=== PATIENT | male | born 1945 | race Caucasian/White ===

== ENCOUNTER 2021-03-20 10:12 | Inpatient (IN) | payer MEDICARE, MEDICAID, SELFPAY ==
[2021-03-20] VITALS (9 sets, daily range): BP systolic 142–185; BP diastolic 76–86; PULSE 74–105; RESP 18–34; TEMP 36.3–37.1; O2SAT 93–98
--- NOTE | ~2021-03-20 | CT_ITS ---
EXAMINATION: CT brain wo con INDICATION: Headache COMPARISON: None TECHNIQUE: Standard unenhanced head CT. The dose-length product (DLP) was 605.33 mGy-cm. The mA was a djusted according to patient size. Iterative reconstruction technique was employed. FINDINGS: There is acute intraparenchymal hemorrhage involving the left parietal region. There is a m oderate amount of edema in the left parietal lobe. There also appears to be a small amount of left pa rietal subarachnoid hemorrhage. No evidence of mass lesion. No evidence of acute infarction. Areas of encephalomalacia in the bilateral basal ganglia, right occipital lobe, and right cerebellum are cons istent with prior infarction. There is mild periventricular and subcortical hypodensity probably rela ondina to small vessel ischemic disease. There is mild prominence of the sulci and ventricles related to cerebral atrophy. Intracranial calcified cerebral atherosclerosis is noted. There are no extra-axial collections. There is no mass effect or midline shift. The orbits and soft tissues are unremarkable. The visualized sinuses and mastoid air cells are well aerated. IMPRESSION: 1. Acute intraparenchymal hemorrhage involving the left parietal region and small amount of left michelle etal subarachnoid hemorrhage, findings are likely posttraumatic in nature. Were discussed with YADY Galdamez on [address] [place] [id number] at 1026 hours on 03/22/2021. 2. 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 Reviewed, dictated and finalized at location B. IMPRESSION: 1. Acute intraparenchymal hemorrhage involving the left parietal region and sma ll amount of left parietal subarachnoid hemorrhage, findings are likely posttra umatic in nature. Were discussed with YADY Galdamez on [address] [place] [id number] at 1026 hours o n 03/22/2021. 2. 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
--- NOTE | ~2021-03-20 | XR_ITS ---
EXAMINATION: XR hip LT min 2V EXAM DATE: 03/21/2021 17:37 INDICATION: Left hip bipolar replacement. TECHNIQUE: Portable frontal, crosstable lateral projections left hip hip obtained immediately follow ing arthroplasty performed by orthopedic surgeon Colten Ledesma MD. FINDINGS: Patient is status post left hip arthroplasty. The orthopedic hardware is in expected posi tion. There is small amount of subcutaneous gas, some soft tissue swelling. Correlate with procedu re note. IMPRESSION: Status post left hip arthroplasty. Reviewed, dictated and finalized at location A.
--- NOTE | ~2021-03-20 | XR_ITS ---
EXAMINATION: XR hip LT 2V w AP pelvis INDICATION: Left hip pain, initial encounter TECHNIQUE: AP view the pelvis and two views of the left hip are obtained. COMPARISON: None available FINDINGS: There is an acute, traumatic, closed, subcapital fracture of the left femoral neck. No kiran tional acute osseous findings are evident. There are phleboliths of the pelvis. Calcified atheroscler osis is noted. IMPRESSION: 1. Acute subcapital fracture of the left femoral neck. Reviewed, dictated and finalized at location B.
--- NOTE | ~2021-03-20 | US_ITS ---
EXAMINATION: US venous doppler LE EXAM DATE: 03/20/2021 18:23 INDICATION: High probability perfusion scan. TECHNIQUE: Multiple grayscale, color flow and Doppler images of the lower extremity deep venous syste ms bilaterally were obtained and reviewed. Technologist data sheet not available at time of dictation . Correlation is made to perfusion scan same date. FINDINGS: RIGHT SIDE Common femoral: -------- Normal. Profunda femoral: ------- Normal. Femoral: Normal. Popliteal: Normal. Posterior tibial: --------- Normal. Peroneal: Normal. Gastrocnemius: Not visualized. Soleus: Not visualized. Greater saphenous: ----- Normal. Lesser saphenous: ------ Not visualized. LEFT SIDE Common femoral: -------- Normal. Profunda femoral: ------- Normal. Femoral: Normal. Popliteal: Normal. Posterior tibial: --------- Normal. Peroneal: Thrombosed. Gastrocnemius: Not visualized. Soleus: Not visualized. Greater saphenous: ----- Normal. Lesser saphenous: ------ Not visualized. IMPRESSION: 1. Positive for left peroneal DVT. 2. No right DVT. Reviewed, dictated and finalized at location A.
--- NOTE | ~2021-03-20 | NM_ITS ---
EXAMINATION: NM pulmonary perfusion EXAM DATE: 03/20/2021 15:31 INDICATION: Hypoxia. TECHNIQUE: A perfusion lung scan was performed. The patient was injected with 5 mCi technetium 99m M AA and imaged. Modified PIOPED 2 criteria used for interpretation of perfusion without ventilation st udy (recent chest x-ray instead for comparison). Correlation is made to chest x-ray same date. FINDINGS: There are multiple medium and large size segmental perfusion defects along the periphery of both lungs. Chest x-ray demonstrates no corresponding lung opacities. IMPRESSION: High probability pulmonary embolism. I called the ER, spoke with Guillermo Prakash MD but patient no longer in the emergency room so I d id not convey the results to him. I called the hospitalist [phone] extension. I called 2nd medical floor , nurse admitting patient is with another patient at this time. I tried calling hospitalist covering. I will try calling someone again at later time. Reviewed, dictated and finalized at location A. IMPRESSION: High probability pulmonary embolism. I called the ER, spoke with Guillermo Prakash MD but patient no longer in the emergency room so I did not convey the results to him. I called the hospitalis t [phone] extension. I called 2nd medical floor, nurse admitting patient is with a nother patient at this time. I tried calling hospitalist covering. I will try c alling someone again at later time.
--- NOTE | ~2021-03-20 | US_ITS ---
EXAMINATION: US renal BI EXAM DATE: 03/20/2021 18:23 INDICATION: Acute renal failure. TECHNIQUE: Multiple grayscale and Doppler images of the kidneys were obtained (by a technologist who performed the scan) and subsequently reviewed. There is no prior study for comparison. FINDINGS: Right kidney: There is normal contour and echogenicity. It measures 9.2 x 5.2 x 5.3 centimeters. The re is an anechoic lesion consistent with cyst measuring 1.4 cm. There is no hydronephrosis. Left kidney: There is normal contour and echogenicity. It measures 9.1 x 5.8 x 6.4 centimeters. Ther e is an anechoic lesion with increased through transmission consistent with cysts measuring 3 cm. The re is no hydronephrosis. Bladder unremarkable. IMPRESSION: 1. No hydronephrosis. Reviewed, dictated and finalized at location A. IMPRESSION: 1. No hydronephrosis.
--- NOTE | ~2021-03-20 | XR_ITS ---
EXAMINATION: XR chest 1V INDICATION: Weakness and fall TECHNIQUE: AP view of the chest is obtained. 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 The lungs are free of acute opacities. There is no pleural effusion or pneumothorax. The cardiomediastinal silhouette is upper limits of normal f or technique. IMPRESSION: 1. No acute cardiopulmonary abnormality. Reviewed, dictated and finalized at location B.
--- NOTE | 2021-03-20 10:22 | ED.FALL ---
HPI - Fall General Chief Complaint: Fall Stated Complaint: Fall, Left Hip Pain Time Seen by Provider: 03/20/21 10:21 History of Present Illness HPI Narrative: 75 yo male w/ h/o DM presents to the ED from home for hip pain. He reportedly fell 3 days ago and has had increasing pain since that time. He has been ambulatory. He denies any other complaints. Related Data Home Medications Medication Instructions Recorded Confirmed amlodipine 5 mg PO DAILY 03/20/21 03/20/21 metformin 1,000 mg PO BID 03/20/21 03/20/21 Allergies Allergy/AdvReac Type Severity Reaction Status Date / Time No Known Allergies Allergy Verified 03/20/21 17:57 Review of Systems Constitutional: Constitutional: Denies fever(s) Cardiovascular: Cardiovascular: Denies chest pain Respiratory: Respiratory: Denies dyspnea Gastrointestinal: Gastrointestinal: Denies abdominal pain Musculoskeletal: Musculoskeletal: Denies back pain PMFSH Past Medical History Medical History Dementia DM2 (diabetes mellitus, type 2) Hypertension Metabolic acidosis Surgical History Surgical History No pertinent past surgical history Family History Family History Father H/O brain surgery he during surgery when the patient was only 7 years old Social History Social History Social History: the patient lives with his . They do not have any biological children. The is the power city attorney for healthcare. 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 Lifelong nonsmoker. Does not use any alcohol marijuana or illicit drugs. The patient desires to be of full code. Smoking status: Never smoker Alcohol intake: never Substance use: never Spiritual care concerns: No Exam Const: General: alert and ill appearing HENMT: Head: normal to inspection, no contusions and no lacerations Neck: Neck: normal visual inspection Chest: Chest palpation & inspection: normal inspection of the chest and no tenderness Resp: Effort & Inspection: tachypneic Auscultation: clear to auscultation bilaterally Cardio: Rate: tachycardic Rhythm: regular rhythm GI: GI Palp: Yes Soft to palpation and No Tenderness to palpation present (GI) Skin: General skin exam: normal color Wounds: wound noted Neuro: General: moves all extremities, no focal motor deficits and CN's II-XI intact bilaterally Extrem: General: edema left (ankle) Psych: Other: Flat affect Course Vital Signs Vital signs: Vital Signs Temperature 37.1 C 03/20/21 10:26 Pulse Rate 105 H 03/20/21 10:26 Respiratory Rate 34 H 03/20/21 10:26 Blood Pressure 148/76 H 03/20/21 10:26 Pulse Oximetry 95 03/20/21 10:26 Temperature 36.8 C 03/20/21 15:29 Pulse Rate 74 03/20/21 15:29 Respiratory Rate 18 03/20/21 15:29 Blood Pressure 164/82 H 03/20/21 15:29 Pulse Oximetry 98 03/20/21 15:29 MDM - Fall MDM Narrative Medical decision making narrative: Despite denying symptoms exam is concerning for cardiorespiratory dysfunction. He is in renal failure, likely acute on chronic. Cannot obtain CTA. VQ scan ordered. Hip fracture on x-ray Medical Records Attestation: I reviewed the patient's medical records. Lab Data Attestation: I reviewed the patient's lab results. Result diagrams: 03/20/21 10:45 03/20/21 10:45 Labs: Lab Results 03/20/21 03/20/21 03/20/21 Range/Units 10:45 10:45 10:45 WBC 16.1 H (4.5-10.0) K/mm3 RBC 4.17 L (4.6-6.20) M/mm3 Hgb 11.9 L (14.0-18.0) g/dL Hct 37.5 L (42.0-52.0) % MCV 89.9 (80-100) fl MCH 28.5 (26-34) pg MCHC 31.7 L (32-36) g/dl RDW 13.9 (11.5-14.5) % Plt Count 308 (150-375) k/mm3 MPV 9.1 (7.4-10.4) fl Immature Gran % (Aut
--- NOTE | 2021-03-20 10:32 | ECG_ITS ---
Measurements Intervals [place] Rate: 99 P: 51 AR: 213 QRS: -44 QRSD: 97 T: 54 QT: 337 QTc: 433 Interpretive Statements SINUS RHYTHM WITH FIRST DEGREE AV BLOCK DELAYED PRECORDIAL R/S TRANSITION VOLTAGE CRITERIA FOR LVH BORDERLINE ST-T WAVE ABNORMALITY- LAT/HIGH LAT LEADS BASELINE ARTIFACT- I, II, AVR, V1-V2, V4-V6 ABNORMAL ECG Electronically Signed On 03-20-2021 11:45:02 CDT by Dmitriy Parada D.O.
[2021-03-20 10:46] LABS: Alveolar/Arterial O2 Gradient 59.5 mmHg; Base Excess ABG -10.2 mEq/l (+/-2.0); Fractional Inspired Oxygen 21 %; HCO3 ABG 14.2 mEq/l (22.0-26.0); Oxygen Content ABG 15.5 %vol (16.0-22.0); Oxygen Saturation ABG 88.5 % (95.0-100.0); Oxyhemoglobin 88.3 % THb (90.0-100.0); PCO2 ABG 27.5 mmHg (35.0-45.0); PO2 ABG 57.3 mmHg (80.0-100.0); PO2 FiO2 Ratio Arterial Blood 2.73 %; Total Hemoglobin 12.5 g/dL (12.0-18.0)
[2021-03-20 10:47] LABS: Device ROOM AIR; Modified Allen's Test Pass; Site Drawn RIGHT RADIAL
[2021-03-20 10:54] LABS: Basophils Absolute Auto 0.1 K/mm3 (0.0-0.1); Basophils Percent Auto 0.4 % (0.2-1.2); Eosinophils Absolute Auto 0.4 K/mm3 (0-0.3); Eosinophils Percent Auto 2.6 % (0-4.4); Hematocrit 37.5 % (42.0-52.0); Hemoglobin 11.9 g/dL (14.0-18.0); Immature Granulocyte Absolute 0.08 K/mm3 (0.00-0.031); Immature Granulocyte Percent A 0.5 % (0-0.5); Lymphocytes Absolute Auto 0.94 K/mm3 (0.9-3.2); Lymphocytes Percent Auto 5.8 % (18.3-44.2); Mean Corpuscular HGB Conc 31.7 g/dl (32-36); Mean Corpuscular Hemoglobin 28.5 pg (26-34); Mean Corpuscular Volume 89.9 fl (80-100); Mean Platelet Volume 9.1 fl (7.4-10.4); Monocytes Absolute Auto 0.7 K/mm3 (0.1-0.6); Monocytes Percent Auto 4.5 % (2.6-8.5); Neutrophils Absolute Auto 13.9 K/mm3 (1.3-6.7); Neutrophils Percent Auto 86.2 % (45.5-73.1); Platelet Count Result 308 k/mm3 (150-375); Red Blood Count 4.17 M/mm3 (4.6-6.20); Red Cell Distribution Width 13.9 % (11.5-14.5); White Blood Count 16.1 K/mm3 (4.5-10.0)
[2021-03-20 11:08] LABS: INR 1.1; Partial Thromboplastin Time 27.3 SECONDS (22.3-36.8); Prothrombin Time 13.8 Seconds (11.1-14.7)
[2021-03-20 11:09] LABS: Glucose Point of Care 292 mg/dl (65-105)
[2021-03-20 11:14] LABS: Alanine Aminotransferase 26 U/L (4-50); Albumin Level 4.3 g/dL (3.5-5.1); Alkaline Phosphatase 99 U/L (38-126); Anion Gap 19 mmol/L (8-16); Aspartate Amino Transferase 36 U/L (17-59); Bilirubin,Total 0.9 mg/dL (0.2-1.3); Blood Urea Nitrogen 48 mg/dL (9-20); Carbon Dioxide 15 mmol/L (22-30); Chloride 105 mmol/L (98-107); Estimated CRCL calculation 16 ml/min; Estimated Glomerular Filt Rate 15; Glucose 315 mg/dL (65-110); Potassium 4.4 mmol/L (3.4-5.0); Sodium 139 mmol/L (137-145)
[2021-03-20 11:15] LABS: NT Pro B Type Natriuretic Pept 21600 pg/mL (5-100)
[2021-03-20 13:21] LABS: Add Urine Microscopic? YES; Appearance Urine Clear (Clear); Bilirubin Urine Negative (Negative); Blood Urine 1+ (Negative); Color Urine Yellow (Yellow); Glucose Urine UA 2+ mg/dL (Negative); Granular Casts Urine 15-19 /lpf; Ketones Urine Negative (Negative); Leukocyte Esterase Ur Negative LEU/UL (Negative); Mucus Urine Rare /lpf; Nitrate Urine Negative (Negative); Protein Urine 3+ mg/dL (Negative); RBC Urine 0-2 /hpf (0-2); Specific Grav Ur 1.018 (1.001-1.035); Urobilinogen Urine Negative mg/dL (<2.0); WBC Urine 0-3 /hpf
[2021-03-20] MEDS: LACTATED RINGERS 1,000 ML 50 ML IV CONT (13:50)
--- NOTE | 2021-03-20 15:00 | ADMGEN ---
This patient, Sanjeev Mancera, was admitted to Medical Room 250-01. Patient/family oriented to hospital policies and general routines including ID bracelet, bed and alarms, visiting hours, pain management, procedures, bathroom and other care routines, personal items, smoking policy, room service/diet, and visiting hours. Information on how to activate the Rapid Response Team has been discussed. Patient/Family are encouraged to report perceived risks to care and to ask questions if they do not understand what they are told or what they should do.
--- NOTE | 2021-03-20 15:46 | PM.CNOR ---
History of Present Illness HPI Consult date: 03/20/21 Chief complaint: hip fracture/acute renal failure/CHF Meds Home Medications and Allergies Home Medications Medication Instructions Recorded Confirmed Type amlodipine 03/20/21 History metformin mg 03/20/21 History Allergies Allergy/AdvReac Type Severity Reaction Status Date / Time No Known Allergies Allergy Verified 03/20/21 10:29 Vital Signs Vital Signs - 24 hr 03/20/21 10:26 03/20/21 11:20 03/20/21 12:25 Temperature 98.8 F Pulse Rate 105 H 99 95 Respiratory Rate 34 H 18 18 Blood Pressure 148/76 H 161/83 H 159/80 H Pulse Oximetry 95 93 93 03/20/21 13:05 03/20/21 13:52 03/20/21 15:29 Temperature 98.2 F Pulse Rate 91 93 74 Respiratory Rate 18 20 18 Blood Pressure 185/86 H 153/82 H 164/82 H Pulse Oximetry 96 97 98 Results Labs Result Diagrams: 03/20/21 10:45 03/20/21 10:45 Labs: Abnormal lab results 03/20/21 03/20/21 03/20/21 Range/Units 10:41 10:45 10:45 WBC 16.1 H (4.5-10.0) K/mm3 RBC 4.17 L (4.6-6.20) M/mm3 Hgb 11.9 L (14.0-18.0) g/dL Hct 37.5 L (42.0-52.0) % MCHC 31.7 L (32-36) g/dl Neut % (Auto) 86.2 H (45.5-73.1) % Lymph % (Auto) 5.8 L (18.3-44.2) % [place] # (Auto) 0.7 H (0.1-0.6) K/mm3 Eos # (Auto) 0.4 H (0-0.3) K/mm3 Abs Immat Gran (auto) 0.08 H (0.00-0.031) K/mm3 Absolute Neuts (auto) 13.9 H (1.3-6.7) K/mm3 ABG pH 7.330 L (7.350-7.450) ABG pCO2 27.5 L (35.0-45.0) mmHg ABG pO2 57.3 L (80.0-100.0) mmHg ABG HCO3 14.2 L (22.0-26.0) mEq/l ABG O2 Saturation 88.5 L (95.0-100.0) % ABG O2 Content 15.5 L (16.0-22.0) %vol Oxyhemoglobin 88.3 L (90.0-100.0) % THb Carbon Dioxide 15 L (22-30) mmol/L Anion Gap 19 H (8-16) mmol/L BUN 48 H (9-20) mg/dL Creatinine 3.90 H (0.7-1.3) mg/dL Estimated GFR 15 L (59 - ) Glucose 315 H (65-110) mg/dL POC Capillary Glucose (65-105) mg/dl NT-Pro-B Natriuret Pep 35417 H (5-100) pg/mL Urine Protein (Negative) mg/dL Urine Glucose (UA) (Negative) mg/dL Ur Blood (Man) (Negative) Hyaline Casts (None) /lpf Granular Casts (None) /lpf 03/20/21 03/20/21 Range/Units 11:06 13:01 WBC (4.5-10.0) K/mm3 RBC (4.6-6.20) M/mm3 Hgb (14.0-18.0) g/dL Hct (42.0-52.0) % MCHC (32-36) g/dl Neut % (Auto) (45.5-73.1) % Lymph % (Auto) (18.3-44.2) % [place] # (Auto) (0.1-0.6) K/mm3 Eos # (Auto) (0-0.3) K/mm3 Abs Immat Gran (auto) (0.00-0.031) K/mm3 Absolute Neuts (auto) (1.3-6.7) K/mm3 ABG pH (7.350-7.450) ABG pCO2 (35.0-45.0) mmHg ABG pO2 (80.0-100.0) mmHg ABG HCO3 (22.0-26.0) mEq/l ABG O2 Saturation (95.0-100.0) % ABG O2 Content (16.0-22.0) %vol Oxyhemoglobin (90.0-100.0) % THb Carbon Dioxide (22-30) mmol/L Anion Gap (8-16) mmol/L BUN (9-20) mg/dL Creatinine (0.7-1.3) mg/dL Estimated GFR (59 - ) Glucose (65-110) mg/dL POC Capillary Glucose 292 H (65-105) mg/dl NT-Pro-B Natriuret Pep (5-100) pg/mL Urine Protein 3+ H (Negative) mg/dL Urine Glucose (UA) 2+ H (Negative) mg/dL Ur Blood (Man) 1+ H (Negative) Hyaline Casts 3-4 H (None) /lpf Granular Casts 15-19 H (None) /lpf H & H 03/20/21 Range/Units 10:45 Hgb 11.9 L (14.0-18.0) g/dL Hct 37.5 L (42.0-52.0) % Coagulation 03/20/21 Range/Units 10:45 INR 1.1 All other labs normal.
--- NOTE | 2021-03-20 16:19 | PM.CNOR ---
Assessment and Plan Assessment and plan (1) Fracture of femoral neck, left: Qualifiers: Encounter type: initial encounter Fracture type: closed Qualified Code(s): S72.002A - Fracture of unspecified part of neck of left femur, initial encounter for closed fracture Code(s): S72.002A - Fracture of unspecified part of neck of left femur, initial encounter for closed fracture Status: Acute Assessment and Plan: Displaced femoral neck fracture. Patient has baseline early dementia. History obtained from his and daughter. Pulmonary embolism diagnosed in the emergency room. Discussed care plan with hospitalist. Plan for heparin drip. We need to stop this prior to surgery. Will consider the timing of postoperative anticoagulation. Significant medical comorbidities, including acute renal failure. Discussed the significant risks of surgery with the patient's daughter. Will benefit from bipolar hemiarthroplasty, possibly tomorrow afternoon. History of Present Illness HPI Consult date: 03/20/21 Chief complaint: hip fracture/acute renal failure/CHF Narrative: Patient complains of acute hip pain. Fell from standing height 4 days ago. Admitted through the emergency room for definitive management. No previous hip pain. Comfortable at rest. No numbness, tingling, or other associated symptoms. Poor historian. Confused. Review of Systems Review of Systems: Narrative: Denies loss of consciousness. Lost strength. ROS unobtainable: Yes unobtainable due to mental status Meds Home Medications and Allergies Home Medications Medication Instructions Recorded Confirmed Type amlodipine 03/20/21 History metformin mg 03/20/21 History Allergies Allergy/AdvReac Type Severity Reaction Status Date / Time No Known Allergies Allergy Verified 03/20/21 16:34 Vital Signs Vital Signs - 24 hr 03/20/21 10:26 03/20/21 11:20 03/20/21 12:25 Temperature 37.1 C Pulse Rate 105 H 99 95 Respiratory Rate 34 H 18 18 Blood Pressure 148/76 H 161/83 H 159/80 H Pulse Oximetry 95 93 93 03/20/21 13:05 03/20/21 13:52 03/20/21 15:29 Temperature 36.8 C Pulse Rate 91 93 74 Respiratory Rate 18 20 18 Blood Pressure 185/86 H 153/82 H 164/82 H Pulse Oximetry 96 97 98 Exam Narrative: Exam Narrative: Responsive but confused. Lower extremity shortened and externally rotated. Const: General: no acute distress Eyes: General: appearance normal, both eyes and all related structures Resp: Effort & Inspection: normal respiratory effort GI: GI Palp: Yes Soft to palpation and No Guarding due to palpation present (GI) Urinary Catheter: Urinary Catheter: patent and draining and urine clear Skin: General skin exam: no rashes or lesions noted Neuro: Speech: normal speech Other: Wiggles toes well. Capillary refill brisk. Distal light touch sensation intact. Dorsalis pedis pulse palpable. Extrem: Other: No edema. Results Labs Result Diagrams: 03/20/21 10:45 03/20/21 10:45 Labs: Abnormal lab results 03/20/21 03/20/21 03/20/21 Range/Units 10:41 10:45 10:45 WBC 16.1 H (4.5-10.0) K/mm3 RBC 4.17 L (4.6-6.20) M/mm3 Hgb 11.9 L (14.0-18.0) g/dL Hct 37.5 L (42.0-52.0) % MCHC 31.7 L (32-36) g/dl Neut % (Auto) 86.2 H (45.5-73.1) % Lymph % (Auto) 5.8 L (18.3-44.2) % [place] # (Auto) 0.7 H (0.1-0.6) K/mm3 Eos # (Auto) 0.4 H (0-0.3) K/mm3 Abs Immat Gran (auto) 0.08 H (0.00-0.031) K/mm3 Absolute Neuts (auto) 13.9 H (1.3-6.7) K/mm3 ABG pH 7.330 L (7.350-7.450) ABG pCO2 27.5 L (35.0-45.0) mmHg ABG pO2 57.3 L (80.0-100.0) mmHg ABG HCO3 14.2 L (22.0-26.0) mEq/l ABG O2 Saturation 88.5 L (95.0-100.0) % ABG O2 Content 15.5 L (16.0-22.0) %vol Oxyhemoglobin 88.3 L (90.0-100.0) % THb Carbon Dioxide 15 L (22-30) mmol/L Anion Gap 19 H (8-16) mmol/L BUN 48 H (9-20) mg/dL Creatin
[2021-03-20 16:52] LABS: Glucose Point of Care 142 mg/dl (65-105)
--- NOTE | 2021-03-20 17:10 | PM.IMHP ---
H&P: HPI History of Present Illness Date/Time: 03/20/21 17:10This is a 75-year-old male patient who has a history of dementia and has his at the bedside. The is answering questions for him. The patient is only answering yes or no. According to the the patient went out the carotid on and was looking at a broken spring on the garage door when he felt dizzy and fell and hurt his left hip. The patient complained of his hip all that day and all the next day. But the patient continued to walk on it and Saturday however Saturday he was in so much pain that he laid in bed. He also laid in bed on Saturday as well. The patient was not able to walk on that left leg and so his brought him to the emergency room today. Patient had no known renal failure in the past. The patient was complaining of feeling short of breath in the emergency room there for the provider ordered a V/Q scan. We were not able to do a CT scan of the lungs due to his acute renal failure. Patient's V/Q scan showed a high probability of PE. His white counts noted to be 16.1. The patient does have a history of hypertension and his blood pressure is 164/82. Hip and pelvis x-ray was read as acute subcapital fracture of the left femoral neck. Dr. Whittaker person was notified. We discussed the case about the patient having a pulmonary emboli in being treated for PE. It was felt that it was the patient's best interest to start heparin drip at this time. I also discussed this case with my collaborative who stated that we should start the heparin drip and re-evaluate the patient prior to going to surgery. He is not requiring oxygen. However my collaborative felt that it would be best to have the patient be more therapeutic prior to going to surgery. It was felt that perhaps his renal function may improve so that we can either get a flu CT a and near future or treat him with possibly Eliquis Postop. Patient's H&H is lung 0.9 and 37.5. Patient's pH was found to be 7.330 CO2 was 27.5. PO2 was 57.3. Patient is currently on room air. Patient's creatinine is 3.9 and last known creatinine was 1.7 in 2014. His blood sugar was initially 292 and then 142. Patient's BNP was found to be 216,000. patient is being admitted to inpatient services on the date of service of 03/20/2021. Chief Complaint: Left hip pain Review of Systems Review of Systems: All systems reviewed & are unremarkable except as noted in HPI and below Constitutional: Constitutional: Reports as per HPI and Reports no additional constitutional complaints Eyes: Eyes: Reports as per HPI and Reports no additional eye complaints ENT: Reports system reviewed and no additional complaints, except as documented and Reports Normal hearing present Cardiovascular: Cardiovascular: Reports no additional cardiovascular complaints Respiratory: Respiratory: Reports no additional respiratory complaints and Reports no additional respiratory complaints Gastrointestinal: Gastrointestinal: Reports as per HPI and Reports no additional gastrointestinal complaints Musculoskeletal: Musculoskeletal: Reports no additional musculoskeletal complaints Integumentary/Breasts: Skin/Breast: Reports system reviewed and no additional complaints, except as docu and Reports as per HPI Neurologic: Reports system reviewed and no additional complaints, except as documented, Reports as per HPI and Reports Normal hearing present Psychiatric: Psychiatric: Reports no additional psychiatric complaints and Reports as per HPI Endocrine: Endocrine: Reports no additional endocrine complaints Hematologic/Lymphatic: Hematologic/Lymphatic: Reports no additional hematologic/lymphatic complaints Allergic/Immunologic: Allergic/Immunologic: Reports no additional allergic/immunologic complaints [facility] Past Medical History Medical History (Updated 03/20/21 @ 17:21 by Leanna Espinosa NP) Dementia DM2 (diabetes mellitus, type 2) Hypertension
--- NOTE | 2021-03-20 18:22 | PM.CNNEP ---
Assessment and Plan Assessment and plan (1) Acute renal failure: Code(s): N17.9 - Acute kidney failure, unspecified Status: Acute Assessment and Plan: The patient has acute kidney injury. I am not sure whether he has chronic kidney disease. if so his doctor did not mention it to his . I was able to look at the ultrasound and these do not seem to show any obstruction and the renal cortices are not echogenic. The kidneys are somewhat small however at only 9cm. So he might have some underlying kidney disease. I doubt if it is very severe however because he is still on metformin so probably has a baseline GFR above 30. The patient has some degree of acute kidney injury. the ultrasound does not show hydronephrosis. There is a somewhat large bladder. Will try a Gonzalez catheter if the patient allows to see if this improves his renal function. The patient might be dehydrated. He was in bed for 2 days and even though his tried to have him eat he did not. He was drinking some fluid. Rhabdomyolysis is always a possibility also will check a CPK. Other causes such as glomerulonephritis and interstitial nephritis or unlikely in this clinical scenario. will check urine electrolytes and eosinophils. Check a CPK. Will check urine protein to creatinine ratio. Will give IV fluids. Will stop the lactated Ringer's and give saline instead. Check a stat BMP to see where we are with the potassium and the bicarbonate. (2) Metabolic acidosis: Code(s): E87.2 - Acidosis Status: Acute Assessment and Plan: patient has metabolic acidosis with an anion gap. Assuming his CO2 and anion gap are normal at baseline his delta bicarb is about 10 and the delta anion gap is about 5. So he has a mild high anion gap metabolic acidosis from lactate, acetone, or uremic poisons. He also has a mild non anion gap metabolic acidosis from poor ammonia production from his renal failure. There is no history of diarrhea. Will check lactate and BHOB. If the lactate is high then we will see how his anion gap is doing. (3) Pulmonary emboli: Code(s): I26.99 - Other pulmonary embolism without acute cor pulmonale Status: Acute Assessment and Plan: The patient is on heparin drip (4) Fracture of femoral neck, left: Qualifiers: Encounter type: initial encounter Fracture type: closed Qualified Code(s): S72.002A - Fracture of unspecified part of neck of left femur, initial encounter for closed fracture Code(s): S72.002A - Fracture of unspecified part of neck of left femur, initial encounter for closed fracture Status: Acute Assessment and Plan: Dr. Ledesma saw the patient (5) Hypertension: Code(s): I10 - Essential (primary) hypertension Status: Acute Assessment and Plan: blood pressure is a bit generous. He is getting his amlodipine (6) Dementia: Code(s): F03.90 - Unspecified dementia without behavioral disturbance Status: Chronic Assessment and Plan: he is significantly impaired by this. History of Present Illness Reason for Consult Consult date: 03/20/21 Chief Complaint Chief complaint: hip fracture/acute renal failure/CHF History of Present Illness Narrative: Sanjeev is a very pleasant 75 year old gentleman who has multiple medical problems including diabetes on metformin, hypertension on amlodipine, dementia, who sees his doctor regularly every 4 months. Do not have any records of these interactions. Apparently the patient was doing well until he fell the other day. He had some pain in the left hip for a couple of days and was gradually worsening and then on Saturday and Saturday he was bed ridden because of the pain. He came to the ER Today. He was evaluated in the ER and found to have a hip fracture. He is also found to have an elevated creatinine. He was given some IV fluids and admitted to the
--- NOTE | 2021-03-20 18:45 | PC.NURSE ---
Notified redye hand that the patient is back in the room. I requested they draw PTT, INR, so we can start heparin drip.
[2021-03-20] MEDS: MORPHINE SULFATE (*CRX) 4 MG/ML INJ IV PUSH (18:58)
[2021-03-20] MEDS: SODIUM CHLORIDE 0.9% IV 1,000 ML 100 ML IV CONT (18:59)
[2021-03-20 19:36] LABS: Basophils Absolute Auto 0.1 K/mm3 (0.0-0.1); Basophils Percent Auto 0.5 % (0.2-1.2); Eosinophils Absolute Auto 0.2 K/mm3 (0-0.3); Eosinophils Percent Auto 1.7 % (0-4.4); Hematocrit 38.1 % (42.0-52.0); Hemoglobin 12.2 g/dL (14.0-18.0); Immature Granulocyte Absolute 0.04 K/mm3 (0.00-0.031); Immature Granulocyte Percent A 0.3 % (0-0.5); Lymphocytes Absolute Auto 1.27 K/mm3 (0.9-3.2); Lymphocytes Percent Auto 11.1 % (18.3-44.2); Mean Corpuscular Hemoglobin 28.5 pg (26-34); Mean Platelet Volume 9.5 fl (7.4-10.4); Monocytes Absolute Auto 0.8 K/mm3 (0.1-0.6); Monocytes Percent Auto 7.2 % (2.6-8.5); Neutrophils Absolute Auto 9.1 K/mm3 (1.3-6.7); Neutrophils Percent Auto 79.2 % (45.5-73.1); Platelet Count Result 335 k/mm3 (150-375); Red Blood Count 4.28 M/mm3 (4.6-6.20); Red Cell Distribution Width 13.9 % (11.5-14.5); White Blood Count 11.5 K/mm3 (4.5-10.0)
[2021-03-20 19:47] LABS: INR 1.1
[2021-03-20 19:48] LABS: Creatine Kinase 313 U/L (55-170); Lactic Acid Reflex 1.3 mmol/L (0.7-2.1); Partial Thromboplastin Time 29.1 SECONDS (22.3-36.8)
[2021-03-20 19:49] LABS: Anion Gap 12 mmol/L (8-16); Blood Urea Nitrogen 51 mg/dL (9-20); Calcium 9.7 mg/dL (8.4-10.2); Carbon Dioxide 21 mmol/L (22-30); Chloride 109 mmol/L (98-107); Estimated CRCL calculation 18 ml/min; Estimated Glomerular Filt Rate 18; Glucose 159 mg/dL (65-110); Potassium 3.9 mmol/L (3.4-5.0); Sodium 142 mmol/L (137-145)
[2021-03-20 19:53] LABS: Beta-Hydroxybutyrate/Acetoacetate 0.29 mmol/L (0.02-0.27)
[2021-03-20] MEDS: HEPARIN SODIUM 5,000 UNITS/ML VIAL 6500 UNITS IV PUSH (20:20)
[2021-03-20] MEDS: HEPARIN SOD/D5W 100 UNITS/ML 25,000 UNITS/250 ML BAG 15 UNITS IV CONT (20:22)
[2021-03-21] VITALS (16 sets, daily range): BP systolic 137–178; BP diastolic 67–99; PULSE 65–91; RESP 12–20; TEMP 36–37.7; O2SAT 90–100
--- NOTE | 2021-03-21 | ECHO_ITS ---
Patient Info Name: Sanjeev Mancera Age: 75 years : 1945 Gender: Male Ht: 70 in Wt: 177 lbs BSA: 2.00 m2 HR: 91 bpm BP: 174 / 84 mmHg Heart Rhythm: Sinus Rhythm Technical Quality: Good Exam Date: 03/21/2021 11:18 AM Exam Location: [facility] Patient Status: Inpatient Admit Date: 03/20/2021 Staff Ordering Physician: Leanna Espinosa NP Land Classifier: Irene Marcelo RDCS Attending Provider: Jessi Lua PA-C Referring Physician: Francisca AGUILERA; Exam Type: CA echo doppler color flow Study Info Indications - POSITIVE VQ SCAN Complete two-dimensional, color flow and Doppler transthoracic echocardiogram is performed. Summary 1. Complete two-dimensional, color flow and Doppler transthoracic echocardiogram is performed. 2. Left ventricular chamber dimension is moderatelyenlarged. 3. Left ventricular systolic function is mildly reduced, estimated at 45% with hypokinesis of the apical septum apical inferior, and mid anteroseptum. 4. The left ventricular diastolic function is grade II diastolic dysfunction. 5. There is mildly increased left ventricular wall thickness. 6. There is trace tricuspid valve regurgitation. 7. No pulmonary hypertension, estimated pulmonary arterial systolic pressure is 31 mmHg. Left Ventricle Left ventricular chamber dimension is moderatelyenlarged. Left ventricular systolic function is mildly reduced, estimated at 45% with hypokinesis of the apical septum apical inferior, and mid anteroseptum. There is mildly increased left ventricular wall thickness. The left ventricular diastolic function is grade II diastolic dysfunction. Global longitudinal strain is moderately elevated at -10 %. Right Ventricle Right ventricular chamber dimension is normal. Right ventricular systolic function is normal. Left Atria Left atrial chamber dimension is moderately enlarged. Right Atria Right atrial chamber dimension is mildly enlarged. Aortic Valve The aortic valve is not well visualized. There is mild aortic valve sclerosis. There is no aortic valve stenosis. There is mild aortic valve regurgitation. Pulmonic Valve The pulmonic valve is not well visualized. There is trace pulmonic regurgitation. Mitral Valve The mitral valve has thickened leaflets. There is mild mitral valve regurgitation. The mitral valve annulus is mildly calcified. Tricuspid Valve The tricuspid valve leaflets are normal. There is trace tricuspid valve regurgitation. No pulmonary hypertension, estimated pulmonary arterial systolic pressure is 31 mmHg. Pericardium/Pleural The pericardium appears normal. There is no pericardial effusion. Inferior Vena Cava Normal inferior vena cava with >50% collapse upon inspiration consistent with normal right atrial pressure, 5 mmHg. Aorta The aortic root size at the sinus of Valsalva is normal. The prox ascending aorta size is mildly dilated. There is mild aortic atherosclerosis. Left Ventricular Outflow Tract Name Value Normal LVOT 2D LVOT Diameter 2.0 cm LVOT Doppler LVOT Peak Gradient 4 mmHg LVOT Mean
[2021-03-21 00:10] LABS: Creatinine Urine 143.5 mg/dL
[2021-03-21 00:19] LABS: Sodium Urine Random 53 meq/L
[2021-03-21 02:45] LABS: Basophils Absolute Auto 0.1 K/mm3 (0.0-0.1); Basophils Percent Auto 0.7 % (0.2-1.2); Eosinophils Absolute Auto 0.5 K/mm3 (0-0.3); Eosinophils Percent Auto 4.7 % (0-4.4); Hematocrit 33.5 % (42.0-52.0); Hemoglobin 10.9 g/dL (14.0-18.0); Immature Granulocyte Absolute 0.04 K/mm3 (0.00-0.031); Immature Granulocyte Percent A 0.4 % (0-0.5); Lymphocytes Absolute Auto 1.73 K/mm3 (0.9-3.2); Lymphocytes Percent Auto 16.4 % (18.3-44.2); Mean Corpuscular HGB Conc 32.5 g/dl (32-36); Mean Corpuscular Hemoglobin 28.9 pg (26-34); Mean Corpuscular Volume 88.9 fl (80-100); Mean Platelet Volume 9.2 fl (7.4-10.4); Monocytes Absolute Auto 0.9 K/mm3 (0.1-0.6); Monocytes Percent Auto 8.3 % (2.6-8.5); Neutrophils Absolute Auto 7.4 K/mm3 (1.3-6.7); Neutrophils Percent Auto 69.5 % (45.5-73.1); Partial Thromboplastin Time 56.9 SECONDS (22.3-36.8); Platelet Count Result 288 k/mm3 (150-375); Red Blood Count 3.77 M/mm3 (4.6-6.20); Red Cell Distribution Width 13.8 % (11.5-14.5); White Blood Count 10.6 K/mm3 (4.5-10.0)
[2021-03-21 02:49] LABS: Albumin Level 3.6 g/dL (3.5-5.1); Anion Gap 10 mmol/L (8-16); Blood Urea Nitrogen 49 mg/dL (9-20); Calcium 9.4 mg/dL (8.4-10.2); Carbon Dioxide 21 mmol/L (22-30); Chloride 107 mmol/L (98-107); Estimated CRCL calculation 18 ml/min; Estimated Glomerular Filt Rate 18; Glucose 146 mg/dL (65-110); Phosphorus 4.6 mg/dL (2.5-4.5); Potassium 4.1 mmol/L (3.4-5.0); Sodium 138 mmol/L (137-145)
[2021-03-21] MEDS: HEPARIN SODIUM 5,000 UNITS/ML VIAL 3000 UNITS IV PUSH (03:00)
--- NOTE | 2021-03-21 03:10 | PC.NURSE ---
0300 PTT AT 0220 CAME BACK AT 56.9, BOLUSED WITH 3000 UNITS OF HEPARIN, INCREASED DRIP FROM 15 TO 17 MLS/HR.
[2021-03-21 04:18] LABS: Eosinophil Urine None Seen % (None Seen)
[2021-03-21] MEDS: SODIUM CHLORIDE 0.9% IV 1,000 ML 100 ML IV CONT ×2 (05:28→21:00)
--- NOTE | 2021-03-21 06:35 | PM.PNNEP ---
Progress Note: A&P Assessment and Plan (1) Acute renal failure: Code(s): N17.9 - Acute kidney failure, unspecified Status: Acute Assessment and Plan: The patient has acute kidney injury. Renal ultrasound shows no hydro but small kidneys. CK is normal. UA shows protein and blood urine eosinophils negative urine electrolytes are pre renal CPK is normal the patient probably has acute on chronic renal failure. Chronic is probably due to hypertension and diabetes. Acute is probably from pre renal azotemia continue IV fluids for now (2) Metabolic acidosis: Code(s): E87.2 - Acidosis Status: Acute Assessment and Plan: anion gap is down to 10 and bicarb is up to 21. ABG shows that he also has a superimposed respiratory alkalosis. This is probably from the pulmonary embolus. Will continue IV fluids for now without bicarb. (3) Pulmonary emboli: Code(s): I26.99 - Other pulmonary embolism without acute cor pulmonale Status: Acute Assessment and Plan: The patient is on heparin drip (4) Fracture of femoral neck, left: Code(s): S72.002A - Fracture of unspecified part of neck of left femur, initial encounter for closed fracture Status: Acute Assessment and Plan: Dr. Ledesma saw the patient (5) Hypertension: Code(s): I10 - Essential (primary) hypertension Status: Acute Assessment and Plan: blood pressure is high. Will increase amlodipine (6) Dementia: Code(s): F03.90 - Unspecified dementia without behavioral disturbance Status: Chronic Assessment and Plan: he is significantly impaired by this. Subjective Date/time seen: 03/21/21 06:35 Interval history: patient says he feels okay. No chest pain or shortness of breath. Belly is okay. Review of Systems Cardiovascular: Cardiovascular: Reports no additional cardiovascular complaints Respiratory: Respiratory: Reports no additional respiratory complaints Gastrointestinal: Gastrointestinal: Reports no additional gastrointestinal complaints Genitourinary: Genitourinary: Reports no additional male genitourinary complaints Exam Narrative: Exam Narrative: WDWN in NAD skin no rash head ncat lungs clear cor reg no rub abd BS+ nontender and soft ext no edema. Objective Data Vital Signs Vital Signs: Vital Signs - 24 hr 03/20/21 10:26 03/20/21 11:20 03/20/21 12:25 Temperature 37.1 C Pulse Rate 105 H 99 95 Respiratory Rate 34 H 18 18 Blood Pressure 148/76 H 161/83 H 159/80 H Pulse Oximetry 95 93 93 03/20/21 13:05 03/20/21 13:52 03/20/21 15:29 Temperature 36.8 C Pulse Rate 91 93 74 Respiratory Rate 18 20 18 Blood Pressure 185/86 H 153/82 H 164/82 H Pulse Oximetry 96 97 98 03/20/21 16:19 03/20/21 20:00 03/20/21 20:54 Temperature 36.3 C L Pulse Rate 87 81 78 Respiratory Rate 18 Blood Pressure 142/82 H Pulse Oximetry 98 03/21/21 00:00 03/21/21 04:00 03/21/21 05:04 Temperature 36.1 C L Pulse Rate 78 71 77 Respiratory Rate 17 Blood Pressure 174/84 H Pulse Oximetry 100 Intake/Output Intake/Output: Intake & Output 03/18/21 03/19/21 03/20/21 03/21/21 23:59 23:59 23:59 23:59 Intake Total 1030 1550 Output Total 500 200 Balance 530 1350 Meds/Results Medications: Active Medications Generic Name Dose Route Start Last Admin Trade Name Freq PRN Reason Stop Dose Admin Amlodipine Besylate 5 mg 03/21/21 09:00 Amlodipine Besylate 5 Mg Tablet PO DAILY [facility] Heparin Sodium (Porcine) 6,500 units 03/20/21 16:55 Heparin Sodium 5,000 Units/Ml Vial IV PUSH PRN PRN aPTT less than 55 seconds Heparin Sodium (Porcine) 3,000 units 03/20/21 16:55 03/21/21 03:00 Heparin Sodium 5,000 Units/Ml Vial IV PUSH 3,000 units PRN PRN Administration aPTT 55 - 70 seconds Heparin Sodium/Dextrose 25,000 units in 250 mls @ 17 mls/hr 07
[2021-03-21 07:06] LABS: Total Protein Urine Random 478 mg/dL; Ur Ttl Prot Creatinine Ratio 3.33 mg/mg (0-0.20)
[2021-03-21 09:16] LABS: Partial Thromboplastin Time 86.8 SECONDS (22.3-36.8)
[2021-03-21] MEDS: amLODIPine BESYLATE 5 MG TABLET 10 MG PO (10:18)
--- NOTE | 2021-03-21 11:08 | P.OP_ITS ---
Procedure Note - Detailed Date of Procedure 03/21/21 Pre-op Diagnosis hip fracture/acute renal failure/CHF Post-op Diagnosis same ( Displaced left femoral neck fracture.) Procedure Performed Bipolar hemiarthroplasty, left hip. Surgeon Colten Ledesma MD Director Of Marketing [employer] Karena Ricketts PA-C Anesthesia general Description of Procedure Physician fleet assistant, Karena Ricketts PA-C, required for surgery; including patient positioning, draping, tissue retraction, maintaining instrument position, hip dislocation and reduction, wound closure, and dressing placement. A general anesthetic was administered. The patient was carefully placed in the lateral decubitus position on the peg board positioner. An axillary roll was placed. The hip was prepped and draped in the usual sterile fashion. A minimally invasive optimized posterior approach to the hip was performed. An L shaped ca psulotomy was created along the upper border of the piriformis. The short external rotators were tagged with number 2 high strength suture for later repair. The labrum was preserved. The femoral neck cut was performed. The femoral head was removed and sized. The acetabular floor was cleared of debris and loose tissue. The femur was sequentially reamed and broached. Trial was assessed for leg length and stability. The real component was impacted into position, trialed again, and the final head and bipolar component were assembled. The hip was reduced after copious irrigation. The short external rotators and capsule were repaired through drill holes in the posterior trochanter. The wound was closed in layers with 1 vicryl, 2,0, and 2-0 running barbed suture. Adhesive tapes were placed on the skin, followed by a sterile gauze dressing. The patient was extubated and brought to the recovery room. Implants [place] accolade 2 hip stem size 6, 127. Bipolar component with metal femoral head. Estimated Blood Loss -100.0 Urine Output -100.0 Drains No Complications No immediate complications Condition stable Disposition PACU
--- NOTE | 2021-03-21 11:21 | PM.IMPN ---
Progress Note: A&P Assessment and Plan (1) Fracture of femoral neck, left: Code(s): S72.002A - Fracture of unspecified part of neck of left femur, initial encounter for closed fracture Status: Acute Assessment and Plan: Secondary to mechanical fall. Orthopedic surgery following with plans for surgical repair this afternoon. The patient is high risk due to his acute PE. Analgesics available as needed PT/OT postoperatively. Weight-bearing status per orthopedic surgery Fall precautions (2) Pulmonary emboli: Code(s): I26.99 - Other pulmonary embolism without acute cor pulmonale Status: Acute Assessment and Plan: V/Q scan with high probability for acute PE with multiple segmental perfusion defects. Unable to obtain CTA due to GABRIEL. He is oxygenating well and he is asymptomatic. Heparin drip started yesterday. Will plan on hold for surgery this afternoon. Plan to resume heparin as soon as possible postoperatively. Echo ordered and is pending (3) Acute renal failure: Code(s): N17.9 - Acute kidney failure, unspecified Status: Acute Assessment and Plan: Creatinine elevated at 3.9 on presentation. Etiology for this is unclear, possibly prerenal. renal ultrasound reviewed without hydronephrosis nephrology has been consulted. Input is appreciated. Metformin on hold. Continue IV fluids (4) DVT (deep venous thrombosis): Code(s): I82.409 - Acute embolism and thrombosis of unspecified deep veins of unspecified lower extremity Status: Acute Assessment and Plan: Left peroneal DVT evident on venous Doppler plan as above. resume heparin drip postoperatively when appropriate (5) DM2 (diabetes mellitus, type 2): Code(s): E11.9 - Type 2 diabetes mellitus without complications Status: Chronic Assessment and Plan: blood sugars reviewed and have been generally well controlled. Begin Accu-Cheks, sliding scale insulin, hypoglycemic protocol metformin on hold as above check updated A1c (6) Hypertension: Code(s): I10 - Essential (primary) hypertension Status: Acute Assessment and Plan: blood pressure reviewed and has been elevated above target. Last BP 174/84. Continue amlodipine, uptitrated to 10 m monitor BP trends and adjust medication regimen as needed (7) Dementia: Code(s): F03.90 - Unspecified dementia without behavioral disturbance Status: Chronic Assessment and Plan: at his baseline. Subjective Date/time seen: 03/21/21 11:21 Interval history: Date of service: 03/21/2021 Sanjeev Mancera is an 85-year-old male with a history dementia, type 2 diabetes mellitus, and hypertension who is seen in follow-up for left hip fracture due to a mechanical fall, suspected pulmonary embolism, and acute kidney injury. He is doing pretty well today and is feeling mostly comfortable. reports that his left hip pain comes and goes and currently is rating it 5/10 in severity. He denies shortness of breath, pleuritic chest pain, cough, hemoptysis, palpitations. Does report intermittent left-sided leg pain but denies edema of the lower extremities. No nausea or vomiting. no fevers, chills, dizziness, lightheadedness. Denies abdominal pain. Denies dysuria. Denies constipation or diarrhea. He notes that he fell because he lost his balance. Reports it is not uncommon for him to fall but cannot quantify recent falls. He does feel weak. Review of Systems Review of Systems: All systems reviewed & are unremarkable except as noted in HPI and below Exam Narrative: Exam Narrative: Mr. Mancera is a well-appearing 75-year-old male who is lying supine in bed. He appears comfortable and is in NARD. Neuro: awake, alert and oriented to self and location, cannot acutely state year, speech clear, no focal neuro deficits noted HEENMT:
[2021-03-21 12:25] LABS: Glucose Point of Care 144 mg/dl (65-105)
--- NOTE | 2021-03-21 14:22 | WPDHPUPDATE1 ---
History and Physical Update Update Date/Time: 03/21/21 14:22 History and Physical has been reviewed, including an updated exam of the patient. There are NO changes in the patient's condition. Risks, benefits, and alternatives have been discussed and questions answered. Patient agrees to proceed with procedure.
--- NOTE | 2021-03-21 14:56 | WPDANESEPPF ---
Anes - Initial Pre Proc Eval Procedure: Operation Date: 03/21/21 15:00 Proposed Procedures p Left Bipolar Hip Replacement - Colten Ledesma MD Date/Time: 03/21/21 14:56 Surgeon: Jessi Lua PA-C Pre Op Diagnosis: hip fracture/acute renal failure/CHF Patient Data Age: 75 Gender: M Height: 1.78 m Weight: 80.6 kg Last Vital Signs Temp 36.1 C L 03/21/21 05:04 Pulse 90 03/21/21 12:00 Resp 17 03/21/21 05:04 BP 174/84 H 03/21/21 05:04 Pulse Ox 100 03/21/21 05:04 Allergies Allergy/AdvReac Type Severity Reaction Status Date / Time No Known Allergies Allergy Verified 03/20/21 17:57 Home Medications Medication Instructions Recorded Confirmed Type amlodipine 5 mg PO DAILY 03/20/21 03/20/21 History metformin 1,000 mg PO BID 03/20/21 03/20/21 History Laboratory Tests 03/20/21 03/20/21 03/20/21 16:44 18:58 18:58 WBC 11.5 K/mm3 H K/mm3 (4.5-10.0) RBC 4.28 M/mm3 L M/mm3 (4.6-6.20) Hgb 12.2 g/dL L g/dL (14.0-18.0) Hct 38.1 % L % (42.0-52.0) MCV 89.0 fl fl (80-100) MCH 28.5 pg pg (26-34) MCHC 32.0 g/dl g/dl (32-36) RDW 13.9 % % (11.5-14.5) Plt Count 335 k/mm3 k/mm3 (150-375) MPV 9.5 fl fl (7.4-10.4) Immature Gran % (Auto) 0.3 % % (0-0.5) Neut % (Auto) 79.2 % H % (45.5-73.1) Lymph % (Auto) 11.1 % L % (18.3-44.2) [place] % (Auto) 7.2 % % (2.6-8.5) Eos % (Auto) 1.7 % % (0-4.4) Baso % (Auto) 0.5 % % (0.2-1.2) Lymph # (Auto) 1.27 K/mm3 K/mm3 (0.9-3.2) [place] # (Auto) 0.8 K/mm3 H K/mm3 (0.1-0.6) Eos # (Auto) 0.2 K/mm3 K/mm3 (0-0.3) Baso # (Auto) 0.1 K/mm3 K/mm3 (0.0-0.1) Abs Immat Gran (auto) 0.04 K/mm3 H K/mm3 (0.00-0.031) Absolute Neuts (auto) 9.1 K/mm3 H K/mm3 (1.3-6.7) Absolute Nucleated RBC 0.0 K/mm3 K/mm3 (0.0-0.012) Nucleated RBC % 0.0 % % (0.0-0.2) PT 14.0 Seconds Seconds (11.1-14.7) INR 1.1 APTT 29.1 SECONDS SECONDS (22.3-36.8) Sodium Potassium Chloride Carbon Dioxide Anion Gap BUN Creatinine Estim Creat Clear Calc Estimated GFR Glucose POC Capillary Glucose 142 mg/dl H mg/dl (65-105) Lactic Acid Calcium Phosphorus Total Creatine Kinase Albumin Beta-Hydroxybutyrate/Acetoacetate Urine Eosinophils U Random Total Protein Ur Random Sodium Urine Creatinine Protein/Creat Ratio 2 03/20/21 03/20/21 03/20/21 18:58 18:58 18:58 WBC RBC Hgb Hct MCV MCH MCHC RDW Plt Count MPV Immature Gran % (Auto) Neut % (Auto) Lymph % (Auto) [place] % (Auto) Eos % (Auto) Baso % (Auto) Lymph # (Auto) [place] # (Auto) Eos # (Auto) Baso # (Auto) Abs Immat Gran (auto) Absolute Neuts (auto) Absolute Nucleated RBC Nucleated RBC % PT INR APTT Sodium 142 mmol/L mmol/L (137-145) Potassium 3.9 mmol/L mmol/L (3.4-5.0) Chloride 109 mmol/L H mmol/L (98-107) Carbon Dioxide 21 mmol/L L mmol/L (22-30) Anion Gap 12 mmol/L mmol/L (8-16) BUN 51 mg/dL H mg/dL (9-20) Creatinine 3.40 mg/dL H mg/dL (0.7-1.3) Estim Creat Clear Calc 18 ml/min ml/min Estimated GFR 18 L (59 - ) Glucose 159 mg/dL H mg/dL (65-110
--- NOTE | 2021-03-21 15:17 | SUR.PREOP ---
1515; DR STRONG AT BEDSIDE, MARKING PT. ANCEF 2GM AND STAT TYPE AND SCREEN ORDERED. NO SHAVE, NO SCRUB NEEDED.NOTIFIED OF TEMP 99.8
[2021-03-21] MEDS: LACTATED RINGERS 1,000 ML 30 ML IV CONT ×2 (15:19→17:23)
--- NOTE | 2021-03-21 15:20 | SUR.PREOP ---
DR LUEVANO NOTIFIED OF TEMP 99.8 AND BP 178/99
[2021-03-21 15:22] LABS: Partial Thromboplastin Time 29.1 SECONDS (22.3-36.8)
--- NOTE | 2021-03-21 15:38 | SUR.PREOP ---
3624; phone consent obtained with 2 RN's from spouse, [place], for blood transfusion
[2021-03-21 15:41] LABS: Glucose Point of Care 123 mg/dl (65-105)
[2021-03-21] MEDS: ceFAZolin 2 GM/D5W 50 ML 2 GM/50 ML BAG IVPB ×2 (15:42→23:56)
--- NOTE | 2021-03-21 18:03 | SUR.PHASEI ---
1800 sbar faxed floor notified
--- NOTE | 2021-03-21 18:35 | PC.NURSE ---
Returned from OR per bed. Report received from YADY Dickey.
[2021-03-21 18:55] LABS: Glucose Point of Care 169 mg/dl (65-105)
[2021-03-21] MEDS: ACETAMINOPHEN 500 MG TABLET 1000 MG PO ×2 (18:55→23:56)
[2021-03-21 20:21] LABS: Hematocrit 35.7 % (42.0-52.0); Hemoglobin 11.6 g/dL (14.0-18.0)
[2021-03-21 21:59] LABS: Glucose Point of Care 172 mg/dl (65-105)
[2021-03-22] VITALS (7 sets, daily range): BP systolic 149–169; BP diastolic 65–73; PULSE 75–96; RESP 18–20; TEMP 36.1–37.2; O2SAT 96–99
[2021-03-22 02:09] LABS: Glucose Point of Care 158 mg/dl (65-105)
[2021-03-22 04:28] LABS: Basophils Absolute Auto 0.1 K/mm3 (0.0-0.1); Basophils Percent Auto 0.5 % (0.2-1.2); Eosinophils Absolute Auto 0.5 K/mm3 (0-0.3); Eosinophils Percent Auto 4.3 % (0-4.4); Hematocrit 30.5 % (42.0-52.0); Hemoglobin 9.6 g/dL (14.0-18.0); Immature Granulocyte Absolute 0.06 K/mm3 (0.00-0.031); Immature Granulocyte Percent A 0.5 % (0-0.5); Lymphocytes Absolute Auto 1.21 K/mm3 (0.9-3.2); Lymphocytes Percent Auto 9.6 % (18.3-44.2); Mean Corpuscular HGB Conc 31.5 g/dl (32-36); Mean Corpuscular Hemoglobin 28.5 pg (26-34); Mean Corpuscular Volume 90.5 fl (80-100); Mean Platelet Volume 9.2 fl (7.4-10.4); Monocytes Absolute Auto 1.1 K/mm3 (0.1-0.6); Monocytes Percent Auto 8.4 % (2.6-8.5); Neutrophils Absolute Auto 9.6 K/mm3 (1.3-6.7); Neutrophils Percent Auto 76.7 % (45.5-73.1); Platelet Count Result 231 k/mm3 (150-375); Red Blood Count 3.37 M/mm3 (4.6-6.20); Red Cell Distribution Width 13.9 % (11.5-14.5); White Blood Count 12.6 K/mm3 (4.5-10.0)
[2021-03-22 04:37] LABS: Alanine Aminotransferase 17 U/L (4-50); Albumin Level 2.9 g/dL (3.5-5.1); Alkaline Phosphatase 71 U/L (38-126); Anion Gap 8 mmol/L (8-16); Aspartate Amino Transferase 39 U/L (17-59); Bilirubin,Total 0.7 mg/dL (0.2-1.3); Blood Urea Nitrogen 47 mg/dL (9-20); Calcium 8.6 mg/dL (8.4-10.2); Carbon Dioxide 18 mmol/L (22-30); Chloride 112 mmol/L (98-107); Estimated CRCL calculation 20 ml/min; Estimated Glomerular Filt Rate 20; Glucose 121 mg/dL (65-110); Magnesium 1.6 mg/dL (1.6-2.3); Phosphorus 5.2 mg/dL (2.5-4.5); Potassium 4.5 mmol/L (3.4-5.0); Sodium 138 mmol/L (137-145)
[2021-03-22 04:44] LABS: Partial Thromboplastin Time 32.7 SECONDS (22.3-36.8)
[2021-03-22] MEDS: HEPARIN SODIUM 5,000 UNITS/ML VIAL 6500 UNITS IV PUSH (04:55)
[2021-03-22] MEDS: HEPARIN SOD/D5W 100 UNITS/ML 25,000 UNITS/250 ML BAG 15 UNITS IV CONT (04:56)
[2021-03-22] MEDS: ACETAMINOPHEN 500 MG TABLET 1000 MG PO ×2 (06:09→11:06)
[2021-03-22] MEDS: SODIUM CHLORIDE 0.9% IV 1,000 ML 100 ML IV CONT (06:09)
[2021-03-22 07:49] LABS: Glucose Point of Care 117 mg/dl (65-105)
[2021-03-22] MEDS: amLODIPine BESYLATE 5 MG TABLET 10 MG PO (09:07)
[2021-03-22] MEDS: ceFAZolin 2 GM/D5W 50 ML 2 GM/50 ML BAG IVPB (09:07)
[2021-03-22] MEDS: DOCUSATE SODIUM 100 MG CAPSULE PO (09:07)
--- NOTE | 2021-03-22 09:54 | PM.PNNEP ---
Progress Note: A&P Assessment and Plan (1) Acute renal failure: Code(s): N17.9 - Acute kidney failure, unspecified Status: Acute Assessment and Plan: The patient has acute kidney injury. Renal ultrasound shows no hydro but small kidneys. CK is normal. UA shows protein and blood urine eosinophils negative urine electrolytes are pre renal CPK is normal the patient probably has acute on chronic renal failure. we have reached out to Dr. Culver for a baseline creatinine. Chronic is probably due to hypertension and diabetes. Acute is probably from pre renal azotemia Creatinine is gradually improving. he is eating so we can stop the fluids. (2) Metabolic acidosis: Code(s): E87.2 - Acidosis Status: Acute Assessment and Plan: Will add oral bicarb (3) Pulmonary emboli: Code(s): I26.99 - Other pulmonary embolism without acute cor pulmonale Status: Acute Assessment and Plan: The patient is on heparin drip (4) Fracture of femoral neck, left: Code(s): S72.002A - Fracture of unspecified part of neck of left femur, initial encounter for closed fracture Status: Acute Assessment and Plan: Dr. Ledesma saw the patient Surgery done yesterday (5) Hypertension: Code(s): I10 - Essential (primary) hypertension Status: Acute Assessment and Plan: blood pressure is high. just increased amlodipine yesterday (6) Dementia: Code(s): F03.90 - Unspecified dementia without behavioral disturbance Status: Chronic Assessment and Plan: he is significantly impaired by this. Subjective Date/time seen: 03/22/21 09:54 Interval history: patient says he feels okay. No chest pain or shortness of breath. Belly is okay. he had surgery yesterday. sitting up in a chair comfortably. Exam Narrative: Exam Narrative: WDWN in NAD skin no rash head ncat lungs clear bilateral cor reg no rub abd BS+ nontender and soft ext no edema. Objective Data Vital Signs Vital Signs: Vital Signs - 24 hr 03/21/21 12:00 03/21/21 14:00 03/21/21 15:09 Temperature 36.9 C 37.7 C H Pulse Rate 90 91 90 Respiratory Rate 18 20 Blood Pressure 175/82 H 178/99 H Pulse Oximetry 95 97 03/21/21 17:35 03/21/21 17:50 03/21/21 18:05 Temperature 36.6 C Pulse Rate 90 90 85 Respiratory Rate 18 12 18 Blood Pressure 164/82 H 174/75 H 159/84 H Pulse Oximetry 100 100 94 03/21/21 18:20 03/21/21 18:35 03/21/21 18:50 Temperature 36.7 C 36.7 C Pulse Rate 81 81 80 Respiratory Rate 16 18 18 Blood Pressure 153/68 H 163/83 H 155/74 H Pulse Oximetry 97 94 90 03/21/21 19:16 03/21/21 20:00 03/21/21 20:16 Temperature 36.0 C L 36.0 C L Pulse Rate 65 70 65 Respiratory Rate 16 16 Blood Pressure 137/67 137/67 Pulse Oximetry 95 95 95 03/22/21 00:00 03/22/21 00:16 03/22/21 04:00 Temperature 36.1 C L Pulse Rate 83 75 77 Respiratory Rate 18 Blood Pressure 161/70 H Pulse Oximetry 99 03/22/21 04:16 Temperature 36.5 C Pulse Rate 84 Respiratory Rate 20 Blood Pressure 169/73 H Pulse Oximetry 99 Intake/Output Intake/Output: Intake & Output 03/19/21 03/20/21 03/21/21 03/22/21 23:59 23:59 23:59 23:59 Intake Total 1030 2900 1290 Output Total 500 200 300 Balance 530 2700 990 Meds/Results Medications: Active Medications Generic Name Dose Route Start Last Admin Trade Name Freq PRN Reason Stop Dose Admin Acetaminophen 1,000 mg 03/21/21 18:31 03/22/21 06:09 Acetaminophen 500 Mg Tablet PO 1,000 mg Q6HR ERASMO Administration Amlodipine Besylate 10 mg 03/21/21 09:00 03/22/21 09:07 Amlodipine Besylate 5 Mg Tablet PO 10 mg QAM ERASMO Administration Dextrose 12.5 gm 03/21/21 11:54 Dextrose 50% 25 Gm/50 Ml Syringe IV PUSH PRN PRN Hypoglycemia Protocol Docusate Sodium 100 mg 03/22/21 09:00 03/22/21 09:07 Docusate Sodium 100 Mg C
[2021-03-22 10:58] LABS: Partial Thromboplastin Time 88.5 SECONDS (22.3-36.8)
[2021-03-22 11:40] LABS: Glucose Point of Care 190 mg/dl (65-105)
--- NOTE | 2021-03-22 13:03 | WPDANESPN ---
Anes - Prog Note Post-Op Date/Time: 03/22/21 13:03 Cardiovascular status: normal Respiratory status: normal Airway patency: baseline Mental status: other (Reportedly patient found to have right sided weakness, See CT report for results (hemorrhage) Pt being tranferred to [facility]) Post-Op hydration status: normal Vital Signs: Last Vital Signs Temp 37.2 C 03/22/21 10:00 Pulse 94 03/22/21 12:00 Resp 18 03/22/21 10:00 BP 149/65 H 03/22/21 10:00 Pulse Ox 96 03/22/21 10:00 Pain Score (VAS): 09/11 I/O: Intake & Output 03/21/21 03/22/21 03/22/21 23:59 07:59 15:59 Intake Total 1350 1290 545 Output Total 300 Balance 1350 990 545 Laboratory Tests 03/22/21 04:20 03/22/21 04:20 03/21/21 03/21/21 03/21/21 15:06 15:19 15:37 WBC RBC Hgb Hct MCV MCH MCHC RDW Plt Count MPV Immature Gran % (Auto) Neut % (Auto) Lymph % (Auto) Rogers % (Auto) Eos % (Auto) Baso % (Auto) Lymph # (Auto) Rogers # (Auto) Eos # (Auto) Baso # (Auto) Abs Immat Gran (auto) Absolute Neuts (auto) Absolute Nucleated RBC Nucleated RBC % APTT 29.1 Sodium Potassium Chloride Carbon Dioxide Anion Gap BUN Creatinine Estim Creat Clear Calc Estimated GFR Glucose POC Capillary Glucose 123 H Calcium Phosphorus Magnesium Total Bilirubin AST ALT Alkaline Phosphatase Total Protein Albumin Blood Type A Positive Antibody Screen Negative 03/21/21 03/21/21 03/21/21 17:35 18:47 19:17 WBC RBC Hgb 11.6 L Hct 35.7 L MCV MCH MCHC RDW Plt Count MPV Immature Gran % (Auto) Neut % (Auto) Lymph % (Auto) Rogers % (Auto) Eos % (Auto) Baso % (Auto) Lymph # (Auto) Rogers # (Auto) Eos # (Auto) Baso # (Auto) Abs Immat Gran (auto) Absolute Neuts (auto) Absolute Nucleated RBC Nucleated RBC % APTT Sodium Potassium Chloride Carbon Dioxide Anion Gap BUN Creatinine Estim Creat Clear Calc Estimated GFR Glucose POC Capillary Glucose 172 H 169 H Calcium Phosphorus Magnesium Total Bilirubin AST ALT Alkaline Phosphatase Total Protein Albumin Blood Type Antibody Screen 03/21/21 03/22/21 03/22/21 21:02 04:20 04:20 WBC 12.6 H RBC 3.37 L Hgb 9.6 L Hct 30.5 L MCV 90.5 MCH 28.5 MCHC 31.5 L RDW 13.9 Plt Count 231 MPV 9.2 Immature Gran % (Auto) 0.5 Neut % (Auto) 76.7 H Lymph % (Auto) 9.6 L Rogers % (Auto) 8.4 Eos % (Auto) 4.3 Baso % (Auto) 0.5 Lymph # (Auto) 1.21 Rogers # (Auto) 1.1 H Eos # (Auto) 0.5 H Baso # (Auto) 0.1 Abs Immat Gran (auto) 0.06 H Absolute Neuts (auto) 9.6 H Absolute Nucleated RBC 0.0 Nucleated RBC % 0.0 APTT 32.7 Sodium Potassium Chloride Carbon Dioxide Anion Gap BUN Creatinine Estim Creat Clear Calc Estimated GFR Glucose POC Capillary Glucose 158 H Calcium Phosphorus Magnesium Total Bilirubin AST ALT Alkaline Phosphatase Total Protein Albumin Blood Type Antibody Screen 03/22/21 03/22/21 03/22/21 04:20 07:46 10:29 WBC RBC Hgb Hct MCV MCH MCHC RDW Plt Count MPV Immature Gran % (Auto) Neut % (Auto) Lymph % (Auto) Rogers % (Auto) Eos % (Auto) Baso % (Auto) Lymph # (Auto) Rogers # (Auto) Eos # (Auto) Baso # (Auto) Abs Immat Gran (auto) Absolute Neuts (auto) Absolute Nucleated RBC Nucleated RBC % APTT 88.5 H Sodium 138 Potassium 4.5 Chloride 112 H Carbon Dioxide 18 L Anion Gap 8 BUN 47 H Creatinine 3.10 H Estim Creat Clear Calc 20 Estimated GFR 20 L Glucose 121 H POC Capillary Glucose 117 H Calcium 8.6 Phosphorus 5.2 H
--- NOTE | 2021-03-22 13:43 | P.TS_ITS ---
Transfer Discharge Sum: Prov Provider Date of admission: 03/20/21 12:51 Primary care physician: Sai Culver, MD Admitting clinician: Miguel Banuelos MD Consults: 03/20/21 Consult to Physician Routine Comment: Consulting Provider: Lc Kraft call center consultant/MD group to consult: Dr. Gilman community service officer Spoke with Dr. Kraft [phone] on 03/20/2021 Reason for consultation: acute renal failure Has provider been notified: Yes 03/20/21 12:53 Consult to Physician Routine Comment: Consulting Provider: Colten Ledesma Reason for consultation: hip fracture Has provider been notified: Yes DS: Admitting Diagnosis Admitting Diagnosis Admitting Diagnosis: left hip fracture DS: Discharge Diagnosis Discharge Diagnosis (1) Intraparenchymal hemorrhage of brain: Code(s): I61.9 - Nontraumatic intracerebral hemorrhage, unspecified Status: Acute Assessment and Plan: Noted to have dragging of right leg with therapy today. Head CT performed which showed acute intraparenchymal hemorrhage involving the left occipital region [id number] mm. * Emergent transfer arranged to [facility]. Hospitalist accepting MD Dr. De La Paz with consult from neurosurgery MD Dr. Davey. [facility] DE[facility]AYNE L[facility]pez radiology recommendations for pre and post contrast MRI. Imaging will be sent to outside facility for review. * NIH stroke scale 3 with slight facial asymmetry and left leg motor drift. No right sided deficits noted on my exam * Heparin drip discontinued immediately following results of head CT scan. (2) Fracture of femoral neck, left: Code(s): S72.002A - Fracture of unspecified part of neck of left femur, initial encounter for closed fracture Status: Acute Assessment and Plan: Secondary to mechanical fall. * POD #1 left bipolar hemiarthroplasty. * Tolerated the procedure well with adequate pain control. * Fall precautions (3) Pulmonary emboli: Code(s): I26.99 - Other pulmonary embolism without acute cor pulmonale Status: Acute Assessment and Plan: V/Q scan with high probability for acute PE with multiple segmental perfusion defects. Unable to obtain CTA due to GABRIEL. * Heparin drip started 03/20. Discontinued prior to surgery and resumed 03/22 early am. * Discontinued immediately following results of intraparenchymal hemorrhage. * Echo reviewed without evidence of right heart strain. (4) Acute renal failure: Code(s): N17.9 - Acute kidney failure, unspecified Status: Acute Assessment and Plan: Creatinine elevated at 3.9 on presentation. Etiology for this is unclear, possibly prerenal. * renal ultrasound reviewed without hydronephrosis * Seen in consultation by nephrology * Metformin on hold. * Rehydrated with IV fluids (5) DVT (deep venous thrombosis): Code(s): I82.409 - Acute embolism and thrombosis of unspecified deep veins of unspecified lower extremity Status: Acute Assessment and Plan: Left peroneal DVT evident on venous Doppler * plan as above. Heparin drip discontinued (6) DM2 (diabetes mellitus, type 2): Code(s): E11.9 - Type 2 diabetes mellitus without complications Status: Chronic Assessment and Plan: blood sugars reviewed and were generally well controlled. * Accu-Cheks, sliding scale insulin, hypoglycemic protoco
--- NOTE | 2021-03-22 13:43 | PM.TDS ---
Transfer Discharge Sum: Prov Provider Date of admission: 03/20/21 12:51 Primary care physician: Sai Culver, MD Admitting clinician: Miguel Banuelos MD Consults: 03/20/21 Consult to Physician Routine Comment: Consulting Provider: Lc Kraft inbound call center representative/MD group to consult: Dr. Gilman airfield manager Spoke with Dr. Kraft [phone] on 03/20/2021 Reason for consultation: acute renal failure Has provider been notified: Yes 03/20/21 12:53 Consult to Physician Routine Comment: Consulting Provider: Colten Ledesma Reason for consultation: hip fracture Has provider been notified: Yes DS: Admitting Diagnosis Admitting Diagnosis Admitting Diagnosis: left hip fracture DS: Discharge Diagnosis Discharge Diagnosis (1) Intraparenchymal hemorrhage of brain: Code(s): I61.9 - Nontraumatic intracerebral hemorrhage, unspecified Status: Acute Assessment and Plan: Noted to have dragging of right leg with therapy today. Head CT performed which showed acute intraparenchymal hemorrhage involving the left occipital region [id number] mm. Emergent transfer arranged to [facility]. Hospitalist accepting MD Dr. De La Paz with consult from neurosurgery MD Dr. Davey. Discussed with [facility] DEWAYNE López radiology recommendations for pre and post contrast MRI. Imaging will be sent to outside facility for review. NIH stroke scale 3 with slight facial asymmetry and left leg motor drift. No right sided deficits noted on my exam Heparin drip discontinued immediately following results of head CT scan. (2) Fracture of femoral neck, left: Code(s): S72.002A - Fracture of unspecified part of neck of left femur, initial encounter for closed fracture Status: Acute Assessment and Plan: Secondary to mechanical fall. POD #1 left bipolar hemiarthroplasty. Tolerated the procedure well with adequate pain control. Fall precautions (3) Pulmonary emboli: Code(s): I26.99 - Other pulmonary embolism without acute cor pulmonale Status: Acute Assessment and Plan: V/Q scan with high probability for acute PE with multiple segmental perfusion defects. Unable to obtain CTA due to GABRIEL. Heparin drip started 03/20. Discontinued prior to surgery and resumed 03/22 early am. Discontinued immediately following results of intraparenchymal hemorrhage. Echo reviewed without evidence of right heart strain. (4) Acute renal failure: Code(s): N17.9 - Acute kidney failure, unspecified Status: Acute Assessment and Plan: Creatinine elevated at 3.9 on presentation. Etiology for this is unclear, possibly prerenal. renal ultrasound reviewed without hydronephrosis Seen in consultation by nephrology Metformin on hold. Rehydrated with IV fluids (5) DVT (deep venous thrombosis): Code(s): I82.409 - Acute embolism and thrombosis of unspecified deep veins of unspecified lower extremity Status: Acute Assessment and Plan: Left peroneal DVT evident on venous Doppler plan as above. Heparin drip discontinued (6) DM2 (diabetes mellitus, type 2): Code(s): E11.9 - Type 2 diabetes mellitus without complications Status: Chronic Assessment and Plan: blood sugars reviewed and were generally well controlled. Accu-Cheks, sliding scale insulin, hypoglycemic protocol metformin on hold as above (7) Hypertension: Code(s): I10 - Essential (primary) hypertension Status: Acute Assessment and Plan: blood pressure reviewed and had been elevated initially, likely from pain. Last BP 149/65. Received amlodipine for BP. Further BP management per hospitalist/neuro at outside facility (8) Dementia: Code(s): F03.90 - Unspecified dementia without behavioral disturbance Status: Chronic Assessment and Plan: [place] his base
--- NOTE | 2021-03-22 15:49 | PM.PNORT ---
Progress Note: A&P Assessment and Plan (1) Fracture of femoral neck, left: Code(s): S72.002A - Fracture of unspecified part of neck of left femur, initial encounter for closed fracture Status: Acute Assessment and Plan: Postop day 1: Left bipolar hemiarthroplasty. PT working with patient at the time of my visit. PT had concerns for stroke. Hospitalist was notified and head CT ordered. Bandage dry and intact with no drainage. No signs of hematoma. Patient able to wiggle toes. Pain controlled. DVT prophylaxis per hospitalist due to PE. He was started back on Heparin 12 hours post surgery. Recommend limiting narcotic pain medication. Tylenol for pain. Follow up in office in 6 weeks. Subjective Subjective Date/Time Seen: 03/22/21 08:30 No pain at the time of my visit. Fell from standing height. Admitted through the emergency room for definitive management. No previous hip pain. Comfortable at rest. No numbness, tingling, or other associated symptoms. Poor historian. Confused. Review of Systems Review of Systems: Narrative: Denies loss of consciousness. Lost strength. ROS unobtainable: Yes unobtainable due to mental status Exam Narrative: Exam Narrative: Pleasant thin, elderly 75 y/o male. A&O to self and place. No lower leg deformity. Dressing dry and intact without drainage. No erythema, ecchymosis, warmth. No rash or lesions. Slight swelling. No distal edema. ROM not assessed due to pain. Light touch sensation intact. Dorsalis pedis pulse normal. Leg length appears equal. Objective Data Vital Signs Vital Signs: Vital Signs - 24 hr 03/21/21 17:35 03/21/21 17:50 03/21/21 18:05 Temperature 97.8 F Pulse Rate 90 90 85 Respiratory Rate 18 12 18 Blood Pressure 164/82 H 174/75 H 159/84 H Pulse Oximetry 100 100 94 03/21/21 18:20 03/21/21 18:35 03/21/21 18:50 Temperature 98.0 F 98.0 F Pulse Rate 81 81 80 Respiratory Rate 16 18 18 Blood Pressure 153/68 H 163/83 H 155/74 H Pulse Oximetry 97 94 90 03/21/21 19:16 03/21/21 20:00 03/21/21 20:16 Temperature 96.8 F L 96.8 F L Pulse Rate 65 70 65 Respiratory Rate 16 16 Blood Pressure 137/67 137/67 Pulse Oximetry 95 95 95 03/22/21 00:00 03/22/21 00:16 03/22/21 04:00 Temperature 96.9 F L Pulse Rate 83 75 77 Respiratory Rate 18 Blood Pressure 161/70 H Pulse Oximetry 99 03/22/21 04:16 03/22/21 08:00 03/22/21 10:00 Temperature 97.7 F 98.9 F Pulse Rate 84 83 96 Respiratory Rate 20 18 Blood Pressure 169/73 H 149/65 H Pulse Oximetry 99 96 03/22/21 12:00 Temperature Pulse Rate 94 Respiratory Rate Blood Pressure Pulse Oximetry Intake/Output Intake/Output: Intake & Output 03/19/21 03/20/21 03/21/21 03/22/21 23:59 23:59 23:59 23:59 Intake Total 1030 2900 2075 Output Total 500 200 300 Balance 530 2700 1775 Meds/Results Radiology Results: ITS Impressions Chest X-Ray 03/20/21 12:02 IMPRESSION: 1. No acute cardiopulmonary abnormality. Hip/Pelvis X-Ray 03/20/21 12:04 IMPRESSION: 1. Acute subcapital fracture of the left femoral neck. Pulmonary Perfusion Imaging 03/20/21 15:36 IMPRESSION: High probability pulmonary embolism. I called the ER, spoke with Guillermo Prakash MD but patient no longer in the emergency room so I did not convey the results to him. I called the hospitalist [phone] extension. I called 2nd medical floor, nurse admitting patient is with another patient at this time. I tried calling hospitalist covering. I will try calling someone again at later time. ADDENDUM: 03/20/21 1610 I discussed this case with 2nd medical floor nurse Kelly at 03/20/2021 16:08 CDT. Venous Doppler Study 03/20/21 18:39 IMPRESSION: 1. Positive for left peroneal DVT. 2. No right DVT. Renal Ultrasound 03/20/21 18:44 IMPRESSION: 1. No hydronephrosis. Hip X-Ray 03/21/21 17:39 IMPRESSION: Status post left hip arthroplasty.
== END 2021-03-22 14:56 | disposition short-term general hospital (02) | DRG 521 ==
LOC: ANHED 13:36 → ANH2MED 14:07
PROVIDERS: Anesthesiology; Internal Medicine; Internal Medicine Nephrology; Nurse Practitioner; Orthopaedic Surgery; Admitting Provider Internal Medicine; Emergency Provider Emergency Medicine; PCP Internal Medicine; Visit Provider Physician Assistant
PROC: 0SRS01Z Replacement of Left Hip Joint, Femoral Surface with Metal Synthetic Substitute, Open Approach (ICD-10-PCS; CPT 27125; principal; 2021-03-21 15:00)
DX: S72.012A Unspecified intracapsular fracture of left femur, initial encounter for closed fracture (principal); I26.99 Other pulmonary embolism without acute cor pulmonale; I61.9 Nontraumatic intracerebral hemorrhage, unspecified; E87.2 Acidosis; N17.9 Acute kidney failure, unspecified; I13.0 Hypertensive heart and chronic kidney disease with heart failure and stage 1 through stage 4 chronic kidney disease, or unspecified chronic kidney disease; N18.4 Chronic kidney disease, stage 4 (severe); I82.452 Acute embolism and thrombosis of left peroneal vein; R29.703 NIHSS score 3; R29.810 Facial weakness; R27.8 Other lack of coordination; F03.90 Unspecified dementia, unspecified severity, without behavioral disturbance, psychotic disturbance, mood disturbance, and anxiety; E11.22 Type 2 diabetes mellitus with diabetic chronic kidney disease; I50.9 Heart failure, unspecified; E86.0 Dehydration; W18.39XA Other fall on same level, initial encounter
CPT/HCPCS: 36415; 36600; 51701; 70450; 71045; 73502; 76775; 78580; 80048; 80053; 80069; 81001; 82010; 82550; 82570; 82805; 82948; 83605; 83735; 83880; 84100; 84156; 84300; 85014; 85018; 85025; 85610; 85730; 85999; 86850; 86900; 86901; 93005; 93306; 93970; 97110; 97161; 97166; 99285; A9270; A9540; C1776; J0171; J0690; J1644; J1885; J2270; J2370; J2405; J2704; J2795; J7030; J7120